=== PATIENT | female | born 1980 | race American Indian/Alaskan Native ===

== ENCOUNTER 2016-08-11 13:18 | Emergency (ER) | payer SELFPAY ==
--- NOTE | 2016-08-11 14:23 | Emergency Department Report ---
Chief Complaint: Extremity Injury, Lower Stated Complaint: RT LEG PAIN/HX DVT Time Seen by Provider: 08/11/16 13:57 - HPI History of Present Illness: 35-year-old -Irish female with past medical history of right leg DVT history of seizures and pulmonary embolisms has been off of her Coumadin for 4 week and now comes in concern for DVT in the right leg. Patient reports that the leg has been swollen in the last 2 days her foot ankle and thigh swelling she reports at the bottom of her foot feels like it's burning. Patient admits to shortness of breath and cough. Patient reports nausea vomiting no fever - Exam Vital Signs: Vital Signs 08/11/16 13:29 Temperature 98.8 F Pulse Rate 97 H Respiratory 20 Rate Blood Pressure 146/95 O2 Sat by Pulse 99 Oximetry Physical Exam: Patient evaluated by this provider fast track patient is tearful in the exam room. Cardiovascular S1-S2 regular rate and rhythm respiratory clear to auscultation bilateral right leg swollen tenderness. MSE screening note: Focused history and physical exam performed. Due to findings the following was ordered: Patient is evaluated with his provider discussed his case with Dr. Chavez. CTA ordered for chest, CBC CMP PT PTT ED Disposition for MSE Condition: Stable
--- NOTE | 2016-08-11 15:00 | XRay Report ---
ROUTINE CHEST, TWO VIEWS: PA and lateral views demonstrate the heart and mediastinal contour to be of normal size and shape. The lungs are clear and fully expanded and the soft tissues and bony structures are normal. IMPRESSION: Normal study.
[2016-08-11 15:33] LABS: Basophils % (Auto) 0.6 % (0.0-1.8); Eosinophils % (Auto) 1.9 % (0.0-4.3); Hematocrit 35.9 % (30.3-42.9); Hemoglobin 11.2 gm/dl (10.1-14.3); Mean Corpuscular HGB Conc 31 % (30-34); Mean Corpuscular Volume 83 fl (79-97); Platelet Count 492 K/mm3 (140-440); Red Blood Count 4.32 M/mm3 (3.65-5.03); Red Cell Distribution Width 17.4 % (13.2-15.2); White Blood Count 8.2 K/mm3 (4.5-11.0)
[2016-08-11 15:35] LABS: INR 0.99 (0.87-1.13)
[2016-08-11 15:36] LABS: Partial Thromboplastin Time 29.2 Sec. (24.2-36.6)
[2016-08-11 15:46] LABS: Mean Corpuscular Hemoglobin 26 pg (28-32)
[2016-08-11 15:47] LABS: Alanine Aminotransferase 6 units/L (7-56); Albumin 3.5 g/dL (3.9-5); Albumin/Globulin Ratio 0.8 %; Alkaline Phosphatase 60 units/L (35-129); Anion Gap 14 mmol/L; BUN/Creatinine Ratio 8.33; Bilirubin,Total 0.3 mg/dL (0.1-1.2); Blood Urea Nitrogen 5 mg/dL (7-17); Calcium 9.3 mg/dL (8.4-10.2); Carbon Dioxide 28 mmol/L (22-30); Chloride 97.2 mmol/L (98-107); Glucose 98 mg/dL (65-100); Potassium 3.9 mmol/L (3.6-5.0); Sodium 135 mmol/L (137-145)
[2016-08-11] MEDS ORDERED: TYLENOL ONE (20:17)
[2016-08-11] MEDS ORDERED: TYLENOL PO ONE (20:23)
--- NOTE | 2016-08-11 23:24 | Emergency Department Report ---
ED General Adult HPI - General Chief complaint: Extremity Injury, Lower Stated complaint: RT LEG PAIN/HX DVT Time Seen by Provider: 08/11/16 13:57 Source: patient, RN notes reviewed Mode of arrival: Ambulatory Limitations: No Limitations - History of Present Illness Initial comments: This is a 35-year-old female. She is previously unknown to me. She does not have a local primary care doctor. She reports that she used to live in [place]. She reports that while living in [place], she was diagnosed with at least 2 pulmonary emboli, and multiple lower extremity DVTs. She does not have an IVC filter. She reports she is supposed be on Coumadin. She does not have a local primary care doctor, she does not have a local veterans services specialist. She reports being diagnosed with a left lower extremity DVT at another hospital ( [facility]) She presents today complaining of right lower extremity pain. The pain is sharp and burning in nature. It does not radiate anywhere. To me she denies chest pain, but in triage endorse shortness of breath. There is no hematemesis. There is no bright red blood per rectum. There is no abdominal pain. No recent trips greater than 4 hours. No recent hospital admissions. States she is not . Admits to dysuria. -: Gradual Location: right, lower extremity Severity scale (0 -10): 8 Quality: burning Consistency: intermittent Improves with: rest Worsens with: movement Associated Symptoms: shortness of breath. denies: chest pain - Related Data Previous Rx's Medication Instructions Recorded Last Taken Type Enoxaparin [Lovenox] 85 mg SQ Q12HR #28 syringe 08/12/16 Unknown Rx Allergies Allergy/AdvReac Type Severity Reaction Status Date / Time No Known Allergies Allergy Verified 08/11/16 20:31 ED Review of Systems ROS: Stated complaint: RT LEG PAIN/HX DVT Other details as noted in HPI Constitutional: denies: malaise, weakness Eyes: denies: vision change ENT: denies: epistaxis Respiratory: see HPI Cardiovascular: as per HPI Gastrointestinal: denies: abdominal pain, hematochezia Genitourinary: denies: dysuria Musculoskeletal: arthralgia, myalgia Skin: denies: lesions Neurological: denies: weakness Psychiatric: denies: anxiety, depression ED Past Medical Hx - Past Medical History Hx Hypertension: Yes Hx Deep Vein Thrombosis: Yes Hx Pulmonary Embolism: Yes Hx Seizures: Yes - Surgical History Additional Surgical History: RIGHT LEG / BILATERAL GROIN ("CLOTS TAKEN OUT"). C -SECTION. TUBAL LIGATION - Social History Smoking Status: Current Some Day Smoker Substance Use Type: Cocaine - Medications Home Medications: Home Medications Medication Instructions Recorded Confirmed Last Taken Type Enoxaparin [Lovenox] 85 mg SQ Q12HR #28 syringe 08/12/16 Unknown Rx ED Physical Exam - General Limitations: No Limitations General appearance: alert, in no apparent distress - Head Head exam: Present: atraumatic, normocephalic - Eye Eye exam: Present: normal appearance, EOMI. Absent: nystagmus - ENT ENT exam: Present: normal exam, normal orophraynx, mucous membranes moist, normal external ear exam - Neck Neck exam: Present: normal inspection, full ROM. Absent: tenderness, meningismus - Respiratory Respiratory exam: Present: normal lung sounds bilaterally. Absent: respiratory distress, wheezes, rales, rhonchi, stridor, chest wall tenderness - Cardiovascular Cardiovascular Exam: Present: regular rate, normal rhythm, normal heart sounds. Absent: bradycardia, tachycardia, irregular rhythm, systolic murmur, diastolic murmur, rubs, gallop - GI/Abdominal GI/Abdominal exam: Present: soft, normal bowel sounds. Absent: distended, tenderness, guarding, rebound, rigid, pulsatile mass - Extremities Exam Extremities exam: Present: normal inspection, full ROM, normal capillary refill , calf tenderness. Absent: tenderness, other (there are 2+ pulses noted in 4 extremities. The right distal calf is minimally tender. The compartments are soft. There is no pain with passive range of motion. Sensation is intact to light touch and pinprick in the upper and lower extremities.) - Back Exam Back exam: Present: normal inspection, full ROM. Absent: tenderness, CVA tenderness (R), CVA tenderness (L), muscle spasm, paraspinal tenderness, vertebral tenderness - Neurological Exam Neurological exam: Present: alert, oriented X3, normal gait, other (Extraocular movements intact. Tongue midline. No facial droop. Facial sensation intact to light touch in the V1, V2, V3 distribution bilaterally. 5 and 5 strength in 4 extremities.. Sensation is intact to light touch in 4 extremities.). Absent : motor sensory deficit - Psychiatric Psychiatric exam: Present: normal affect, normal mood - Skin Skin exam: Present: warm, dry, intact, normal color. Absent: rash ED Course Vital Signs 08/11/16 08/11/16 08/11/16 13:29 20:25 23:40 Temperature 98.8 F Pulse Rate 97 H Respiratory 20 18 Rate Blood Pressure 146/95 Blood Pressure [Left] O2 Sat by Pulse 99 100 Oximetry 08/12/16 08/12/16 08/12/16 00:01 00:14 00:30 Temperature 98.3 F Pulse Rate 65 87 89 Respiratory 21 12 18 Rate Blood Pressure 119/82 Blood Pressure 137/85 [Left] O2 Sat by Pulse 100 100 100 Oximetry 08/12/16 08/12/16 01:00 01:30 Temperature Pulse Rate 94 H 91 H Respiratory 12 16 Rate Blood Pressure 144/93 135/97 Blood Pressure [Left] O2 Sat by Pulse 100 Oximetry - Reevaluation(s) Reevaluation #1: 08/12/16 00:31 Differential diagnosis: DVT, pulmonary embolus, noncompliant with anticoagulation, urinary tract infection Endy: 35-year-old female with a primary complaint of right lower extremity pain, she had a duplex study that demonstrated a peroneal vein clot, which is distal to the trifurcation. Her other history is concerning, she reports multiple pulmonary emboli, no IVC filter. Her INR is subtherapeutic. She reported dysuria, and she reported shortness of breath in triage. A urinalysis and test are pending. She'll be treated emperically With Lovenox at 1 mg/kg subcutaneous. Given that patient is unreliable, does not have primary care doctor, reports a significant history of thromboembolic disease, I will obtain a CT angioe of the chest to exclude pulmonary embolus. Reevaluation #2: 08/12/16 02:34 CT angiogram of the chest is negative for pulmonary embolus. Urinalysis not consistent with urinary tract infection. Patient resting comfortably. Will be discharged with Lovenox therapy, instructions to follow up with outpatient primary care, outpatient hematology. Return precautions are reviewed. Vital signs stable at this time. ED Medical Decision Making - Lab Data Result diagrams: 08/11/16 15:12 08/11/16 15:12 Vital Signs 08/11/16 08/11/16 13:29 20:25 Temperature 98.8 F Pulse Rate 97 H Respiratory 20 18 Rate Blood Pressure 146/95 O2 Sat by Pulse 99 Oximetry Laboratory Results - last 24 hr 08/11/16 08/11/16 08/11/16 15:12 15:12 15:12 WBC 8.2 RBC 4.32 Hgb 11.2 Hct 35.9 MCV 83 MCH 26 L MCHC 31 RDW 17.4 H Plt Count 492 H Lymph % (Auto) 13.3 L [place] % (Auto) 10.5 H Eos % (Auto) 1.9 Baso % (Auto) 0.6 Lymph # 1.1 L [place] # 0.9 H Eos # 0.2 Baso # 0.1 Seg Neutrophils % 73.7 H Seg Neutrophils # 6.1 PT 13.0 INR 0.99 APTT 29.2 Sodium 135 L Potassium 3.9 Chloride 97.2 L Carbon Dioxide 28 Anion Gap 14 BUN 5 L Creatinine 0.6 L Estimated GFR > 60 BUN/Creatinine Ratio 8.33 Glucose 98 Calcium 9.3 Total Bilirubin 0.3 AST 12 ALT 6 L Alkaline Phosphatase 60 Total Protein 8.0 Albumin 3.5 L Albumin/Globulin Ratio 0.8 - EKG Data When compared to previous EKG there are: previous EKG unavailable 08/12/16 00:33 Normal sinus, 89 beats per minute, borderline left axis deviation, Q waves noted in 1 and aVL, abnormal EKG, not morphologically consistent with STEMI, there is no prior EKG available for comparison. - Radiology Data Radiology results: report reviewed, image reviewed interpreted by me: X-ray of the chest is negative CT angiogram of the chest is negative for pulmonary embolus LIVE [facility] VIDAL GUTIÉRREZ Female : 1980 [facility]# [id number] 08/11/16 15:41 - Radiology Dept. Note by ALLISON HOANG Acct Num: [id number] : 1980 Patient Age: 35 RLE VENOUS DUPLEX COMPLETED. VAS LAB PRELIMINARY REPORT; NO EVIDENCE OF ACUTE OR NEW DVT NOTED. HX OF RECENT RLE DVT NOTED BY PATIENT. VERY SMALL SEGMENT OF RT. PX CALF PERONEAL NOTED WITH NON-OCCL. DVT. PHYSICIANS REPORT TO FOLLOW... ( RSK) Initialized on 08/11/16 15:41 - END OF NOTE Critical care attestation.: If time is entered above; I have spent that time in minutes in the direct care of this critically ill patient, excluding procedure time. ED Disposition Clinical Impression: DVT (deep venous thrombosis) Disposition: DISCHARGED TO HOME OR SELFCARE Is pt being admited?: No Does the pt Need Aspirin: No Condition: Stable Instructions: Deep Venous Thrombosis (ED) Additional Instructions: Use the Lovenox medication as directed. Follow-up with either a primary care doctor or electrical instrument technician as soon as possible, preferably within the next week. Dr. Coker is a local primary care doctor. Dr. Arik Crockett is a local veterans services specialist. It is very important to follow up with an outpatient primary care physician and veterans services specialist to establish outpatient care for your blood clots. Not following up in a timely fashion a resultant propagation of a blood clot, which in turn Result in , disability, loss of quality of life. Rest and avoid heavy lifting. Avoid strenuous physical activity. Return to the ER right away with new pain, worsened pain, migration of pain, fevers or chills, intractable nausea or vomiting, inability to tolerate liquid feeds. Prescriptions: Enoxaparin [Lovenox] 85 mg SQ Q12HR #28 syringe Referrals: PRIMARY CARE, [Primary Care Provider] - 3-5 Days IGNACIO COKER MD [Staff Physician] - 3-5 Days DONALD LAY MD [Staff Physician] - 3-5 Days
[2016-08-11] MEDS ORDERED: LOVENOX SUB-Q STA (23:25)
[2016-08-11] MEDS ORDERED: NACL 0.9% 1000 ML 1,000 ML IV ONE (23:25)
[2016-08-11] MEDS ORDERED: NACL ONE (23:33)
[2016-08-12 00:36] LABS: Bilirubin,Urine NEG (Negative); Blood,Urine NEG (Negative); Ketones,Urine NEG (Negative); Leukocyte Esterase,Urine TR (Negative); Mucus,Urine 3+ /HPF; Nitrite,Urine NEG (Negative); Protein,Urine <15 mg/dL mg/dL (Negative)
[2016-08-12 02:14] VITALS: BP 135/97
--- NOTE | 2016-08-12 02:25 | Cat Scan Report ---
FINAL REPORT PROCEDURE: CT ANGIO CHEST TECHNIQUE: Computerized axial tomographic angiography of the chest and pulmonary arteries was performed after the IV injection of iodinated nonionic contrast. The image data was postprocessed using maximum intensity projection (MIP) and 2-dimensional multiplanar reformatted (MPR) techniques. The examination is specifically tailored to the evaluation of the pulmonary arteries per clinical request. HISTORY: Short of breath 786.09, chest pain 786.50, shortness of breathing hx/o PE and dvt COMPARISON: No prior studies are available for comparison. FINDINGS: Heart and pericardium: Normal. Thoracic aorta: Normal. Pulmonary vasculature: Normal. No pulmonary emboli. Lymph nodes: No enlarged thoracic lymph nodes. Lungs: Lungs are well-expanded. There are no active infiltrates. There is focal scarring and atelectasis at the left lung base.. Pleural space: No effusion, thickening, or pneumothorax. Musculoskeletal structures: No significant abnormality. Upper abdominal structures: No significant abnormality. IMPRESSION: There is no pulmonary embolism or thoracic aortic aneurysm or dissection..
--- NOTE | 2016-08-15 07:47 | Vascular Lab Report ---
Right Lower Extremity Venous Duplex Study: Reason for Exam: Pain and swelling of the right lower extremity. Comments on the Right: Age indeterminate nonocclusive deep venous thrombosis is noted in the peroneal vein.. The remaining veins visualized are freely compressible without evidence of internal echogenicity. Spontaneous and phasic flow is present proximally. Comments on the Left: A limited duplex study was done of the proximal veins of the left lower extremity. All veins visualized are freely compressible without evidence of internal echogenicity. Flow is spontaneous and phasic throughout. No evidence of acute or chronic thrombus is seen in any of the vessels visualized. Impression: Chronic DVT noted in the right peroneal vein..
== END 2016-08-12 02:45 | disposition home or self-care (01) ==
LOC: ED 13:18
DX: I82.4Z1 Acute embolism and thrombosis of unspecified deep veins of right distal lower extremity (principal); I10 Essential (primary) hypertension; R56.9 Unspecified convulsions; Z86.711 Personal history of pulmonary embolism; Z98.51 Tubal ligation status; F17.200 Nicotine dependence, unspecified, uncomplicated; F14.10 Cocaine abuse, uncomplicated
CPT/HCPCS: 36415; 71020; 71275; 80053; 81001; 84702; 85025; 85610; 85730; 93005; 93010; 93971; 96360; 96372; 99285; J1650; J7030; Q9967